=== PATIENT | female | born 1970 | race Caucasian/White ===

== ENCOUNTER → 2021-03-26 | Outpatient (CLI) | payer OTHER ==
[~2021-03-26] MED LIST: LOPRESSOR 25 MG25 MG PO
[2021-03-26 13:29] LABS: HEMOGLOBIN 14.2 gm/dl (12.3-15.3); RED BLOOD COUNT 4.7 M/UL (4.00-5.10); WHITE BLOOD COUNT 8.2 K/UL (4.5-11.0)
[2021-03-26 13:47] LABS: BUN/CREATININE RATIO 25 (0-10)
[2021-03-27 07:11] LABS: VITAMIN D, 25-HYDROXY 22.4 ng/mL (30.0-100.0)
[2021-03-27 08:14] LABS: THYROXINE (T4) 7.6 ug/dL (4.5-12.0)
== END ==
LOC: LAB 12:40
PROVIDERS: Nurse Practitioner Family
DX: R53.82 Chronic fatigue, unspecified (principal); Z87.891 Personal history of nicotine dependence
CPT/HCPCS: 36415; 80053; 80061; 81001; 84436; 84443; 84480; 85025

== ENCOUNTER 2021-05-06 18:49 | Emergency (ER) | payer OTHER ==
[2021-05-06 20:32] LABS: HEMOGLOBIN 13.4 gm/dl (12.3-15.3); RED BLOOD COUNT 4.47 M/UL (4.00-5.10); WHITE BLOOD COUNT 8.9 K/UL (4.5-11.0)
[2021-05-06 20:51] LABS: BUN/CREATININE RATIO 10 (0-10)
== END 2021-05-07 00:09 | disposition short-term general hospital (02) ==
LOC: ER1 18:49
PROVIDERS: Emergency Medicine
DX: G93.89 Other specified disorders of brain (principal); I10 Essential (primary) hypertension; Z88.0 Allergy status to penicillin; Z88.2 Allergy status to sulfonamides; F17.200 Nicotine dependence, unspecified, uncomplicated
CPT/HCPCS: 70450; 71045; 80053; 83690; 83735; 84100; 84439; 84443; 85025; 93005; 96374; 99285; J1100

== ENCOUNTER 2021-05-27 00:55 | Emergency (ER) | payer OTHER ==
[~2021-05-27] VITALS: Ht 167.6 cm; Wt 81.6 kg
[2021-05-27 02:53] LABS: HEMOGLOBIN 13.6 gm/dl (12.3-15.3); RED BLOOD COUNT 4.49 M/UL (4.00-5.10); WHITE BLOOD COUNT 15.2 K/UL (4.5-11.0)
[2021-05-27 03:12] LABS: BUN/CREATININE RATIO 38 (0-10)
[2021-05-28] MEDS ORDERED: LOPRESSOR 25 MG25 MG PO (08:16)
[2021-05-28 12:10] LABS: FREE THYROXINE INDEX 1.4 (1.2-4.9); T3 UPTAKE 27 % (24-39); THYROXINE (T4) 5.3 ug/dL (4.5-12.0)
[2021-05-28 15:12] LABS: THYROGLOBULIN ANTIBODY <1.0 IU/mL (0.0-0.9); THYROID PEROXIDASE (TPO) AB <9 IU/mL (0-34)
== END 2021-05-28 10:41 | disposition home or self-care (01) ==
LOC: ER1 00:55 → CDU 04:03 → ER1 04:03
PROVIDERS: Emergency Medicine
DX: R41.82 Altered mental status, unspecified (principal); R94.6 Abnormal results of thyroid function studies; I10 Essential (primary) hypertension; C79.31 Secondary malignant neoplasm of brain; R45.1 Restlessness and agitation; Z85.118 Personal history of other malignant neoplasm of bronchus and lung; Z20.822 Contact with and (suspected) exposure to COVID-19
CPT/HCPCS: 70450; 71045; 80053; 80307; 81001; 82550; 82553; 83605; 83735; 83874; 84100; 84436; 84439; 84443; 84479; 84484; 85025; 85610; 85730; 86376; 86800; 87040; 93005; 94664; 94760; 99285; J1800; Q0177; U0002

== ENCOUNTER 2021-06-13 19:45 | Emergency (ER) | payer OTHER | END 2021-06-14 02:48 | disposition home or self-care (01) | LOC: ER1 19:45 | DX: R51.9 Headache, unspecified (principal); Z88.0 Allergy status to penicillin; Z88.8 Allergy status to other drugs, medicaments and biological substances; Z85.118 Personal history of other malignant neoplasm of bronchus and lung; Z85.841 Personal history of malignant neoplasm of brain; Z79.899 Other long term (current) drug therapy | CPT/HCPCS: 70450; 99284 ==